=== PATIENT | female | born 1980 ===

== ENCOUNTER → 2022-08-04 12:31 | Outpatient (CLI) | payer OTHER, SELFPAY ==
--- NOTE | ~2022-08-04 | MR_ITS ---
MRI of the right shoulder Technique: Axial proton-density fat-sat images, coronal proton density fat-sat and T2 fat-sat images, and sagittal T1-weighted and T2 fat-sat images were acquired. Clinical History: Pain Findings: There is mild AC joint degenerative change. No significant subacromial spur. Coracoclavicul ar, coracoacromial, and coracohumeral ligaments are intact. There is mild supraspinatus and infraspinous tendinosis, without partial or full-thickness tear. Subs capularis tendon is intact, without partial or full-thickness tear. Tendon of the long head of the bi ceps is intact, without evidence of tear. No definite labral tear identified. No degenerative change or effusion of the glenohumeral joint seen. Inferior glenohumeral ligament is intact. There is mild fluid distention of the subacromial/subdeltoid bursa. There is minimal soft tis joseph edema/fluid along the fascial planes on the posterior margin of the infraspinatus muscle belly. IMPRESSION: Mild fluid distention of the subacromial/subdeltoid bursa, consistent with bursitis. Mild soft tissue edema/fluid along the fascial planes along the posterior margin of the infraspinatus muscle belly, nonspecific. This could reflect posttraumatic change or possibly inflammatory fluid. M uscle belly itself is unremarkable. No definite partial or full-thickness rotator cuff tear. No definite labral tear. Reviewed, dictated and finalized at [facility]. REMOVER IMPRESSION: Mild fluid distention of the subacromial/subdeltoid bursa, consistent with burs itis. Mild soft tissue edema/fluid along the fascial planes along the posterior milind n of the infraspinatus muscle belly, nonspecific. This could reflect posttrauma tic change or possibly inflammatory fluid. Muscle belly itself is unremarkable. No definite partial or full-thickness rotator cuff tear. No definite labral tea r.
== END ==
PROVIDERS: PCP Orthopaedic Surgery; Visit Provider Orthopaedic Surgery
DX: M25.511 Pain in right shoulder (principal)
CPT/HCPCS: 73221